=== PATIENT | male | born 1985 | race Caucasian/White ===

== ENCOUNTER 2016-10-24 14:48 | Emergency (ER) | payer OTHER ==
[2016-10-24 15:09] VITALS: RESP 18
--- NOTE | 2016-10-24 15:47 | C.PDOC ---
History Of Present Illness 31 yr old male presents to the ER with complaints of generalized body rash for the past 3 days. 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 Patient reports using Benadryl with no relief. Denies any known exposure, fever, chills, vision changes, chest pain, SOB, throat swelling, nausea, vomiting, headache or dizziness. Time Seen by Provider: 10/24/16 15:09 Chief Complaint (Nursing): Abnormal Skin Integrity History Per: Patient History/Exam Limitations: no limitations Onset/Duration Of Symptoms: Days (3) Current Symptoms Are (Timing): Still Present Past Medical History Reviewed: Historical Data, Nursing Documentation, Vital Signs Vital Signs: Last Vital Signs Temp 98.3 F 10/24/16 17:21 Pulse 65 10/24/16 17:21 Resp 18 10/24/16 17:21 BP 112/72 10/24/16 17:21 Pulse Ox 99 10/24/16 17:21 Family History: States: No Known Family Hx - Social History Hx Tobacco Use: No Hx Alcohol Use: Yes Hx Substance Use: No - Immunization History Hx Tetanus Toxoid Vaccination: No Hx Influenza Vaccination: No Hx Pneumococcal Vaccination: No Review Of Systems Except As Marked, All Systems Reviewed And Found Negative. Constitutional: Negative for: Fever, Chills Eyes: Negative for: Vision Change ENT: Negative for: Throat Swelling Cardiovascular: Negative for: Chest Pain Respiratory: Negative for: Shortness of Breath Gastrointestinal: Negative for: Nausea, Vomiting Skin: Positive for: Rash (Generalized body rash ) Neurological: Negative for: Headache, Dizziness Physical Exam - Physical Exam Appears: Non-toxic, No Acute Distress Skin: Warm, Dry, Rash (Diffuse urticaria.) Head: Atraumatic, Normacephalic Oral Mucosa: Moist Throat: Normal, No Erythema, No Exudate, Other ((+) Normal voice. ) Chest: Symmetrical, No Tenderness Cardiovascular: Rhythm Regular, No Murmur Respiratory: Normal Breath Sounds, No Rales, No Rhonchi, No Stridor, No Wheezing Extremity: Normal ROM, No Swelling, Other ((+) Vesicles to the 2nd, 3rd & 4th digit of both hands. ) Neurological/Psych: Oriented x3, Normal Speech, Normal Motor ED Course And Treatment O2 Sat by Pulse Oximetry: 95 (RA ) Pulse Ox Interpretation: Normal Progress Note: On re-evaluation patient feels better and is stable to be d/c home. Disposition - Disposition Referrals: Gio Moore MD [Medical Doctor] - [facility] [Outside] [facility] [Outside] [facility] [Outside] Disposition: HOME/ ROUTINE Disposition Time: 17:05 Condition: STABLE Additional Instructions: Follow up with PMD/Clinic within 1-2 days. Return to ED if feel worse. Prescriptions: DiphenhydrAMINE [Benadryl] 25 mg PO .Q4-6 H #30 cap Famotidine [Pepcid] 20 mg PO BID #20 tab predniSONE [predniSONE Tab] 2 tab PO DAILY #8 tab Triamcinolone 0.25% [Triamcinolone Acetonide] 1 appl TP BID #30 g Instructions: Contact Dermatitis (ED), Urticaria (ED) Forms: [facility] [employer] ([place]) - Clinical Impression Clinical Impression: Contact dermatitis, Allergic reaction - PA / LARD BLEACHER / Resident Statement MD/DO has reviewed & agrees with the documentation as recorded. - Scribe Statement The provider has reviewed the documentation as recorded by the Scribe Dilcia Spears All medical record entries made by the Scribe were at my direction and personally dictated by me. I have reviewed the chart and agree that the record accurately reflects my personal performance of the history, physical exam, medical decision making, and the department course for this patient. I have also personally directed, reviewed, and agree with the discharge instructions and disposition.
[2016-10-24] MEDS ORDERED: DiphenhydrAMINE 50 mg/ml Inj IM STA (16:04)
[2016-10-24] MEDS ORDERED: DiphenhydrAMINE 50 mg/ml Inj ONE (16:26)
[2016-10-24 17:22] VITALS: BP 112/72; PULSE 65; TEMP 98.3
[2016-10-24 21:44] VITALS: O2SAT 95
== END 2016-10-24 17:22 | disposition home or self-care (01) ==
LOC: C.ER 14:48
DX: L23.5 Allergic contact dermatitis due to other chemical products (principal)
CPT/HCPCS: 96372; 99283; J1200

== ENCOUNTER 2016-12-02 09:03 | Emergency (ER) | payer OTHER ==
[2016-12-02 09:12] VITALS: RESP 18; TEMP 97.7
--- NOTE | 2016-12-02 10:28 | C.PDOC ---
History Of Present Illness 31 year old male presents to the ED for evaluation of an allergic reaction which began last night. Patient reports an itchy rash which started last night and spread all over his body, sparing his face. Patient took two tablets of Benadryl last night and two tablets this morning without significant relief and presents to the ED for further evaluation. Patient denies shortness of breath, throat swelling sensation, difficulty with swallowing, or contact with new foods , clothing detergents, or soap. Time Seen by Provider: 12/02/16 10:07 Chief Complaint (Nursing): Abnormal Skin Integrity History Per: Patient History/Exam Limitations: no limitations Onset/Duration Of Symptoms: Days (2) Current Symptoms Are (Timing): Still Present Quality Of Symptoms: Itching Additional History Per: Patient Past Medical History Reviewed: Historical Data, Nursing Documentation, Vital Signs Vital Signs: Last Vital Signs Temp 97.7 F 12/02/16 09:12 Pulse 68 12/02/16 11:19 Resp 18 12/02/16 11:19 BP 124/75 12/02/16 11:19 Pulse Ox 98 12/02/16 11:19 - Medical History PMH: No Chronic Diseases Surgical History: No Surg Hx Family History: States: Unknown Family Hx - Social History Hx Tobacco Use: No Hx Alcohol Use: Yes Hx Substance Use: No - Immunization History Hx Tetanus Toxoid Vaccination: No Hx Influenza Vaccination: No Hx Pneumococcal Vaccination: No Review Of Systems ENT: Negative for: Throat Swelling Respiratory: Negative for: Shortness of Breath Skin: Positive for: Rash Physical Exam - Physical Exam Appears: Non-toxic, No Acute Distress Skin: Warm, Dry, Rash (diffuse urticarial, excludes face) Head: Atraumatic, Normacephalic, No Swelling Eye(s): bilateral: Normal Inspection Oral Mucosa: Moist Tongue: Normal Appearing, No Swelling Lips: Normal Appearing, No Swelling Throat: Normal, No Erythema, No Exudate Neck: Supple Chest: Symmetrical, No Deformity Cardiovascular: Rhythm Regular, No Murmur Respiratory: Normal Breath Sounds, No Rales, No Rhonchi, No Wheezing Extremity: Normal ROM, Capillary Refill (less than 2 seconds ) Neurological/Psych: Oriented x3, Normal Speech, Normal Cognition Gait: Steady ED Course And Treatment O2 Sat by Pulse Oximetry: 97 (on RA) Pulse Ox Interpretation: Normal Reassessment Condition: Improved Medical Decision Making Medical Decision Making: Impression: 31 year old male with diffuse urticarial rash Plan: * Benadryl PO * Pepcid PO * Solu-Medrol IM * reassess and disposition Progress: Benadryl PO, Pepcid PO, and Solu-medrol IM administered. On reassessment, patient is resting comfortably, showing no signs of respiratory distress and notes his symptoms have improved. Patient is stable for discharge and is advised to follow up with his PMD within 2-5 days for further evaluation and/or return to the ED if symptoms worsen. Disposition Counseled Patient/Family Regarding: Diagnosis, Need For Followup - Disposition Referrals: Clinic,Med Surg [Primary Care Provider] - Disposition: HOME/ ROUTINE Disposition Time: 11:15 Condition: IMPROVED Additional Instructions: Vaya a [facility] mdico o la clnica en 2-5 michael sin falta, para mas evaluacin. [place] los medicamentos valerio indicado. Volver a la jorge de emergencia en cualquier momento si los sntomas persisten o empeoran. Prescriptions: DiphenhydrAMINE [Benadryl] 25 mg PO Q4 PRN #30 cap PRN Reason: Itching / Pruritus Famotidine [Pepcid] 40 mg PO DAILY #10 tab Prednisone [Deltasone] 2 tab PO DAILY #8 tablet Instructions: Urticaria (GEN) Forms: [facility] ([place]) Print Language: COMORAN - POA Present On Arrival: None - Clinical Impression Clinical Impression: Urticaria - PA / FRONT OFFICE ATTENDANT / Resident Statement MD/DO has reviewed & agrees with the documentation as recorded. - Scribe Statement The provider has reviewed the documentation as recorded by the Scribe (Philomena Russ) All medical record entries made by the Scribe were at my direction and personally dictated by me. I have reviewed the chart and agree that the record accurately reflects my personal performance of the history, physical exam, medical decision making, and the department course for this patient. I have also personally directed, reviewed, and agree with the discharge instructions and disposition.
[2016-12-02 11:20] VITALS: BP 124/75; PULSE 68
[2016-12-02 18:39] VITALS: O2SAT 97
== END 2016-12-02 11:20 | disposition home or self-care (01) ==
LOC: SUPCPDRO 09:03 → C.ER 09:03
DX: L50.9 Urticaria, unspecified (principal)
CPT/HCPCS: 96372; 99283; J2930

== ENCOUNTER 2017-09-24 12:59 | Emergency (ER) | payer OTHER ==
[2017-09-24 13:16] VITALS: BMI 24.7
[2017-09-24 13:19] VITALS: RESP 18; TEMP 98.8
[2017-09-24] MEDS ORDERED: Lidocaine 1% Inj (20ml) INFIL STA (13:51)
[2017-09-24] MEDS ORDERED: Lidocaine 2% Inj (20ml) INFIL ONE (14:00)
[2017-09-24] MEDS ORDERED: Tdap Vaccine 0.5 ml Vial (10-64 yrs) IM ONE ×2 (14:03→14:25)
[2017-09-24] MEDS ORDERED: Tmp-Smz 800 mg-160 mg DS Tab PO STA (14:03)
[2017-09-24] MEDS ORDERED: Lidocaine 2% MPF (5 ml) Inj ONE (14:08)
[2017-09-24] MEDS ORDERED: Bacitracin 500 Units/gm Oint Foilpak UD TOP ONE (14:15)
[2017-09-24] MEDS ORDERED: Bacitracin 500 Units/gm Oint Foilpak UD ONE (14:21)
[2017-09-24] MEDS ORDERED: Tmp-Smz 800 mg-160 mg DS Tab ONE (14:21)
--- NOTE | 2017-09-24 14:33 | C.PDOC ---
History Of Present Illness 32 y/o male presents to the ER complaining of right hand and 3rd finger pain and swelling for the past 3 days. Pt notes he tried to poke it without discharge. Patient denies having trauma, injuries, weakness, and numbness. Time Seen by Provider: 09/24/17 13:18 Chief Complaint (Nursing): Finger,Hand,&Wrist History Per: Patient History/Exam Limitations: no limitations Onset/Duration Of Symptoms: Days Current Symptoms Are (Timing): Still Present Severity: Moderate Past Medical History Reviewed: Historical Data, Nursing Documentation, Vital Signs Vital Signs: Last Vital Signs Temp 98.8 F 09/24/17 15:03 Pulse 56 L 09/24/17 15:03 Resp 18 09/24/17 15:03 BP 127/74 09/24/17 15:03 Pulse Ox 97 09/24/17 15:40 - Medical History PMH: No Chronic Diseases Surgical History: No Surg Hx Family History: States: No Known Family Hx - Social History Hx Tobacco Use: No Hx Alcohol Use: Yes Hx Substance Use: No - Immunization History Hx Tetanus Toxoid Vaccination: No Hx Influenza Vaccination: No Hx Pneumococcal Vaccination: No Review Of Systems Except As Marked, All Systems Reviewed And Found Negative. Musculoskeletal: Positive for: Hand Pain (right hand pain) Neurological: Negative for: Weakness, Numbness Physical Exam - Physical Exam Appears: Non-toxic, No Acute Distress Skin: Warm, Dry Head: Atraumatic, Normacephalic Eye(s): bilateral: Normal Inspection, EOMI Nose: Normal Oral Mucosa: Moist Neck: Normal ROM, Supple Chest: Symmetrical Respiratory: No Accessory Muscle Use Extremity: Normal ROM, No Tenderness, Capillary Refill (<2 sec), Swelling, Other ((+) 4cm area erythema and swelling with central pustule to the radial aspect of dorsal hand; (+) erythema and swelling to 3rd cuticle of right hand) Pulses: Left Radial: Normal, Right Radial: Normal Neurological/Psych: Oriented x3, Normal Speech, Normal Sensation ED Course And Treatment O2 Sat by Pulse Oximetry: 97 (RA) Pulse Ox Interpretation: Normal Progress Note: Patient treated with Keflex PO. Dorsal hand with pustule Preformed I&D, minimal purulent discharge . No evidence of fluctuance to cuticle , instructed warm soaks. Instructed wound check in 2 days. Erythema was circled. - Incision & Drainage Of Abscess Anesthesia: Lidocaine 1% Prep Used: Sterile Water, Betadine Procedure: Incised W/Scalpel Blade#: (11), Drained Pus, Irrigated Cavity W/ Saline Disposition - Disposition Disposition: HOME/ ROUTINE Disposition Time: 14:33 Condition: STABLE Additional Instructions: Return to ER in two days for wound check . Return sooner if symptoms persist or worsen. Regrese a la jorge de emergencias en dos michael para verificar la herida. Regrese antes si los sntomas persisten o empeoran. Prescriptions: Cephalexin [cephalexin] 500 mg PO BID #14 cap Sulfamethoxazole/Trimethoprim [Bactrim DS 800 mg-160 mg] 1 tab PO BID #14 tab Instructions: Cellulitis (Skin Infection), Adult (DC) Forms: [employer] (Yi) Print Language: TAIWANESE - Clinical Impression Clinical Impression: Cellulitis, Skin pustule - PA / BUILDING CONSULTANT / Resident Statement MD/DO has reviewed & agrees with the documentation as recorded. - Scribe Statement The provider has reviewed the documentation as recorded by the Scribe Ada Elena Provider Attestation All medical record entries made by the Scribe were at my direction and personally dictated by me. I have reviewed the chart and agree that the record accurately reflects my personal performance of the history, physical exam, medical decision making, and the department course for this patient. I have also personally directed, reviewed, and agree with the discharge instructions and disposition.
[2017-09-24 15:03] VITALS: BP 127/74; PULSE 56
[2017-09-24 15:39] VITALS: O2SAT 97
== END 2017-09-24 15:04 | disposition home or self-care (01) ==
LOC: C.ER 12:59
DX: L03.113 Cellulitis of right upper limb (principal); L08.9 Local infection of the skin and subcutaneous tissue, unspecified; Z23 Encounter for immunization

== ENCOUNTER 2017-12-05 21:34 | Emergency (ER) | payer SELFPAY ==
[2017-12-05 21:35] VITALS: BMI 24.7
[2017-12-05 21:42] VITALS: O2SAT 98
[2017-12-05 22:27] LABS: BASO % 0.3 % (0.0-2.0); EOS # 0.3 K/uL (0.0-0.7); EOS % 4.2 % (0.0-4.0); HEMOGLOBIN 14.5 g/dL (12.0-18.0); LYMPH # 1.3 K/uL (1.0-4.3); LYMPH % 19.2 % (20.0-40.0); MEAN CELL VOLUME 86.9 fL (80.0-94.0); MEAN CORPUSCULAR HEMOGLOBIN 29.4 pg (27.0-31.0); MEAN CORPUSCULAR HGB CONC 33.8 g/dL (33.0-37.0); MEAN PLATELET VOLUME 8.3 fL (7.2-11.7); MONO # 0.6 K/uL (0.0-0.8); MONO % 8.4 % (0.0-10.0); NEUT # 4.8 K/uL (1.8-7.0); NEUT % 67.9 % (50.0-75.0); RBC 4.94 Mil/uL (4.40-5.90); RED CELL DISTRIBUTION WIDTH 14.2 % (11.5-14.5)
[2017-12-05 22:37] LABS: INR 1.1; PROTHROMBIN TIME 12.2 SECONDS (9.7-12.2)
[2017-12-05 22:40] LABS: ALB/GLOB RATIO 1.2 (1.0-2.1); ALT/SGPT 35 U/L (21-72); AST/SGOT 22 U/L (17-59); BLOOD UREA NITROGEN 26 mg/dL (9-20); CALCIUM 8.8 mg/dl (8.6-10.4); GFR NON-AFRICAN AMERICAN > 60
[2017-12-05] MEDS ORDERED: Iodixanol 320 MG/ML 100 ML BOTTLE IV ONE (23:04)
[2017-12-05] MEDS ORDERED: Sodium Chloride 0.9% 1,000 ML IV ONE (23:13)
[2017-12-05] MEDS ORDERED: Sodium Chloride 0.9% 1,000 ML ONE (23:34)
--- NOTE | 2017-12-06 00:41 | C.PDOC ---
History Of Present Illness 32 year old male presents to the emergency department with complaints of right arm swelling for the last five days. Patient states that the pain began when he lifted something heavy at work with his right arm straightened out. Patient reports a sudden pain to his superior bicep area with soft tissue swelling that is now migrating down his arm, worse with hot water treatment. Patient denies erythema or tenderness, and states that he has not missed work. 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 Patient also complains of a itchy rash to the bilateral hands, right greater than left. Patient reports that the rash is worse after a night of dishwashing. Patient states that he has tried putting talc in his dishwashing gloves for the last week with no relief. Time Seen by Provider: 12/05/17 22:06 Chief Complaint (Nursing): Abnormal Skin Integrity History Per: Patient History/Exam Limitations: no limitations Onset/Duration Of Symptoms: Other (1 week) Location Of Injury: Right: Hand, Left: Hand Quality Of Symptoms: Painful, Itching, Other (rash) Past Medical History Reviewed: Historical Data, Nursing Documentation, Vital Signs Vital Signs: Last Vital Signs Temp 98.2 F 12/05/17 21:40 Pulse 56 L 12/05/17 21:40 Resp 16 12/05/17 21:40 BP 134/66 12/05/17 21:40 Pulse Ox 98 12/05/17 21:40 - Medical History PMH: No Chronic Diseases Surgical History: No Surg Hx Family History: States: No Known Family Hx - Social History Hx Tobacco Use: No Hx Alcohol Use: Yes Hx Substance Use: No - Immunization History Hx Tetanus Toxoid Vaccination: No Hx Influenza Vaccination: No Hx Pneumococcal Vaccination: No Review Of Systems Except As Marked, All Systems Reviewed And Found Negative. Musculoskeletal: Positive for: Hand Pain (bilateral) Skin: Positive for: Rash Neurological: Negative for: Weakness, Numbness Physical Exam - Physical Exam Appears: Non-toxic, No Acute Distress Skin: Warm, Dry, Other (scaly, erythematous, vasicular rash on hands right greater than left.) Head: Atraumatic, Normacephalic Eye(s): bilateral: Normal Inspection, PERRL, EOMI Nose: Normal Oral Mucosa: Moist Neck: Normal, Supple Chest: Symmetrical, No Tenderness Cardiovascular: Rhythm Regular, No Murmur Respiratory: Normal Breath Sounds, No Rales, No Rhonchi, No Wheezing Extremity: Normal ROM (all extremities) Neurological/Psych: Oriented x3, Normal Speech, Normal Cognition ED Course And Treatment - Laboratory Results Result Diagrams: 12/05/17 22:21 12/05/17 22:21 O2 Sat by Pulse Oximetry: 98 (RA) Pulse Ox Interpretation: Normal - CT Scan/US CT R upper arm Other Rad Studies (CT/US): Radiology Report Reviewed (no acute soft tissue injuries, no torn Biceps muscle/tendon seen.) Progress Note: Plan: CT Extremities Upper. EKG. CMP. CBC. PTT. Prothrombin Time. NaCl IV Fluids. Toradol 30mg IVP Reevaluation Time: 00:41 Reassessment Condition: Improved Medical Decision Making Medical Decision Making: probable partial rupture R upper arm (suspect biceps tendon) from 5 days ago, now with edema of R upper arm draining dependently to the R lower arm. 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 Disposition Doctor Will See Patient In The: Office Counseled Patient/Family Regarding: Studies Performed, Diagnosis - Disposition Referrals: Gildardo Moore MD [Staff Provider] - Andrew Belle MD [Staff Provider] - Disposition: HOME/ ROUTINE Disposition Time: 00:43 Condition: GOOD Additional Instructions: suspect rupture of R upper biceps tendon Suggest MRI Call to follow-up with Dr. Belle- Orthopedic Surgeon Descansa el brazo derecho elevado siempre bolsa de hielo 1/2 hora por hora, nada caliente Mantiene el brazo en el sling/esguinse. Descansa de trabajo x 3 sanchez Irritacion' de las irving. provocado por el jabon o' de las juantes plasticos en [place] trabajo bonnie contacto con las juantes de goma/plasticos. Applica inguento de esteroides (1% hydrocortisona) 2 veces al genet Sigue con la [facility] [place] para hacer jose j. Prescriptions: Hydrocortisone 1% Oint [Cortizone 1% Oint] 1 appful TP BID #1 tube Instructions: Contact Dermatitis (DC), Tendon Laceration Forms: [employer] (Icelandic) - Clinical Impression Clinical Impression: Swelling of right upper extremity, Allergic contact dermatitis - Scribe Statement The provider has reviewed the documentation as recorded by the Scribe (Champ Mckenzie) Provider Attestation: All medical record entries made by the Scribe were at my direction and personally dictated by me. I have reviewed the chart and agree that the record accurately reflects my personal performance of the history, physical exam, medical decision making, and the department course for this patient. I have also personally directed, reviewed, and agree with the discharge instructions and disposition.
[2017-12-06 04:07] VITALS: BP 130/70; PULSE 68; RESP 20; TEMP 97.9
--- NOTE | 2017-12-07 10:37 | CT ---
CT right shoulder HISTORY: Shoulder injury. COMPARISON: None available. TECHNIQUE: Multiple contiguous axial images were performed through the right shoulder without the use of intravenous contrast. Subsequently, sagittal and coronal reformatted images were obtained. Findings: If there is concern for a biceps tendon injury, further evaluation with MRI is recommended. Visualized osseous structures appear preserved. Glenohumeral and acromioclavicular joint spaces appear preserved. Incidentally noted are prominent lymph nodes in the right axilla measuring up to 2.5 centimeters as demonstrated on series 3, image 55. Clinical correlation. 3 millimeter subpleural pulmonary nodule within the right lower lobe on series 3, image 68. 3-6 month interval follow-up may be helpful if clinically indicated. Impression: 1. If there is concern for a biceps tendon injury, further evaluation with MRI is recommended. 2. Visualized osseous structures appear preserved. 3. Incidentally noted are prominent lymph nodes in the right axilla measuring up to 2.5 centimeters as demonstrated on series 3, image 55. Clinical correlation. 4. 3 millimeter subpleural pulmonary nodule within the right lower lobe on series 3, image 68. 3-6 month interval follow-up may be helpful if clinically indicated. These findings were preliminarily reported at 12:13 a.m. on 12/06/[address] Harrison Holm from [facility].
== END 2017-12-06 04:06 | disposition home or self-care (01) ==
LOC: C.ER 21:34
DX: L23.9 Allergic contact dermatitis, unspecified cause (principal); M79.89 Other specified soft tissue disorders
CPT/HCPCS: 73201; 80053; 85025; 85610; 85730; 96361; 96374; 99283; J1885; J7030; Q9967